=== PATIENT | male | born 1965 | race Caucasian/White ===

== ENCOUNTER 2019-02-02 15:14 | Emergency (ER) | payer OTHER ==
[~2019-02-02] VITALS: Ht 170.2 cm; Wt 70.8 kg
[2019-02-02 15:24] VITALS: BP 145/81
[2019-02-02] MEDS ORDERED: LIDOCAINE 1%-EPI 1:100,000 20 ML VIAL ONE (15:48)
[2019-02-02] MEDS ORDERED: LIDOCAINE 1%-EPI 1:100,000 20 ML VIAL TP ONE (16:00)
[2019-02-02] MEDS ORDERED: IBUPROFEN 600 MG TABLET PO ONE ×2 (16:30→16:31)
[2019-02-02] MEDS ORDERED: ACETAMINOPHEN 325 MG TABLET PO ONE (16:30)
[2019-02-02] MEDS ORDERED: ACETAMINOPHEN ES 500 MG TABLET ONE (16:31)
== END 2019-02-02 16:36 ==
LOC: ER 15:24
DX: L02.414 Cutaneous abscess of left upper limb (principal); F19.10 Other psychoactive substance abuse, uncomplicated; F11.10 Opioid abuse, uncomplicated; Z02.89 Encounter for other administrative examinations; Z59.0 Homelessness
CPT/HCPCS: 10061; 99284; J3490